=== PATIENT | male | born 1985 | race Hispanic/Latino ===

== ENCOUNTER 2017-07-14 13:44 | Emergency (ER) | payer OTHER ==
[2017-07-14] MEDS ORDERED: IBUPROFEN 600 MG TABLET ONE (14:21)
== END 2017-07-14 15:34 | disposition home or self-care (01) ==
LOC: EDH 13:44
DX: S70.02XA Contusion of left hip, initial encounter (principal); V49.49XA Driver injured in collision with other motor vehicles in traffic accident, initial encounter; Y93.89 Activity, other specified; Y92.89 Other specified places as the place of occurrence of the external cause; Y99.8 Other external cause status
CPT/HCPCS: 73521